=== PATIENT | male | born 1980 | race Caucasian/White ===

== ENCOUNTER 2020-08-12 22:54 | Observation (INO) ==
[2020-08-13] MEDS ORDERED: Acetaminophen 325 MG TABLET PO PRN (01:31)
[2020-08-13] MEDS ORDERED: Ondansetron 4 MG/2 ML VIAL IVP PRN (01:31)
[2020-08-13] MEDS ORDERED: Naloxone 0.4 MG/ML INJ IVP PRN (01:31)
[2020-08-13] MEDS ORDERED: *HR* Dextrose 50 % in Water (Vial) 50 ML VIAL IVP PRN (01:34)
[2020-08-13] MEDS ORDERED: D5% in Water 1,000 ML IVC PRN (01:34)
[2020-08-13] MEDS ORDERED: Dextrose Gel 15 GM/37.5 ML TUBE PO PRN ×2 (01:34)
[2020-08-13] MEDS: Insulin LISPRO 300 UNITS/3 ML VIAL SUBQ SCH ×4 (01:52→17:26)
[2020-08-13 02:34] LABS: Basophils % 0.3 %; Eosinophils % 0.5 %; Hematocrit 37.9 % (37.5-50.1); Hemoglobin 11.4 g/dL (12.9-16.9); Immature Granulocytes % 0.7 % (0-4); Lymphocytes # 1.6 K/mcL (0.6-4.6); Lymphocytes % 28.1 %; Mean Corpuscular HGB Conc 30.1 g/dL (31.6-35.5); Mean Corpuscular Hemoglobin 30.9 pg (28.0-33.3); Mean Corpuscular Volume 102.7 fL (83.0-100.0); Mean Platelet Volume 9.8 fL (9.4-12.4); Monocytes # 0.6 K/mcL (0.0-1.3); Monocytes % 9.7 %; Neutrophils # 3.5 K/mcL (1.6-8.9); Platelet Count 282 K/mcL (140-400); Red Blood Count 3.69 M/mcL (4.19-5.50); Segmented Neutrophils % 60.7 %; White Blood Count 5.8 K/mcL (4.3-11.1)
[2020-08-13 02:35] LABS: Estimated Average Glucose 94 mg/dl; Hemoglobin A1C 4.9 %
[2020-08-13 02:40] LABS: INR 1.1; Prothrombin Time 13.2 Seconds (9.4-12.1)
[2020-08-13 02:55] LABS: Albumin 4.1 g/dL (3.5-5.7); Albumin/Globulin Ratio 1.3 (1.1-2.2); Bilirubin,Total 0.6 mg/dL (0.3-1.0); Calcium 9.6 mg/dL (8.6-10.3); Globulin 3.1 g/dL (2.4-3.5); Magnesium 2.1 mg/dL (1.6-2.6); Phosphorous 4.7 mg/dL (2.7-4.5); Potassium 5.6 mEq/L (3.5-5.1); Total Protein 7.2 g/dL (6.4-8.9)
[2020-08-13 02:58] LABS: Platelet Estimate Normal (Normal)
[2020-08-13] MEDS ORDERED: *HR* LORazepam 2 MG/ML VIAL IVP ONE (03:27)
[2020-08-13] MEDS: MetroNIDAZOLE 500 MG/100 ML 500 MG/100 ML BAG IVPB SCH ×2 (08:29→16:11)
[2020-08-13 09:08] LABS: Hepatitis B Surface Antibody < 3.10 mIU/mL
[2020-08-13 09:20] LABS: Hepatitis B Surface Antigen Nonreactive (Nonreactive)
[2020-08-13 10:09] LABS: Adenovirus F 40/41 PCR Not detected (Not detect); Astrovirus PCR Not detected (Not detect); C.difficile Toxin A/B Gene PCR Not detected (Not detect); Campylobacter by PCR Not detected (Not detect); Cryptosporidium by PCR Not detected (Not detect); Cyclospora cayetanensis PCR Not detected (Not detect); E. coli O157 by PCR Not detected (Not detect); Entamoeba histolytica PCR Not detected (Not detect); Enteroaggregative E.coli(EAEC) Not detected (Not detect); Enteropathogenic E.coli(EPEC) Not detected (Not detect); Enterotoxigenic E.coli (ETEC) Not detected (Not detect); Giardia lamblia PCR Not detected (Not detect); Norovirus GI/GII PCR Not detected (Not detect); Plesiomonas shigelloides PCR Not detected (Not detect); Rotavirus A PCR Not detected (Not detect); Salmonella PCR Not detected (Not detect); Sapovirus PCR Not detected (Not detect); Shig/EnteroinvasiveE coli EIEC Not detected (Not detect); Shigalike tox-prod E coli STEC Not detected (Not detect); Vibrio PCR Not detected (Not detect); Vibrio cholerae PCR Not detected (Not detect); Yersinia enterocolitica PCR Not detected (Not detect)
[2020-08-13] MEDS ORDERED: *HR* Heparin 10,000 UNIT/10 ML VIAL IV PRN ×2 (10:28)
[2020-08-13] MEDS ORDERED: 0.9 % Sodium Chloride 250 ML IVC PRN (10:28)
[2020-08-13] MEDS ORDERED: 0.9 % Sodium Chloride 1,000 ML PRIME SCH (10:30)
[2020-08-13] MEDS ORDERED: 0.9 % Sodium Chloride 1,000 ML ONE (10:47)
[2020-08-13] MEDS ORDERED: ALPRAZolam 0.5 MG TABLET PO PRN (13:43)
[2020-08-13 14:55] VITALS: BP 100/64
[2020-08-13] MEDS ORDERED: Fluticasone Propionate Nasal 50 MCG/SPRAY BOTTLE NS PRN (17:18)
[2020-08-13] MEDS ORDERED: Ergocalciferol (VIT D2) 50,000 UNIT (1.25MG) CAP PO SCH (17:30)
[2020-08-13] MEDS ORDERED: carvediloL 6.25 MG TABLET PO SCH (17:30)
[2020-08-13] MEDS ORDERED: Apixaban 5 MG TABLET PO SCH (17:30)
[2020-08-13] MEDS ORDERED: Insulin LISPRO 300 UNITS/3 ML VIAL SUBQ SCH (21:00)
[2020-08-14] MEDS ORDERED: predniSONE 5 MG TABLET PO SCH (09:00)
[2020-08-14] MEDS ORDERED: EMTRICITABINE PO SCH (09:00)
[2020-08-14] MEDS ORDERED: lisinopriL 20 MG TABLET PO SCH (09:00)
[2020-08-14] MEDS ORDERED: Folic Acid 1 MG TABLET PO SCH (09:00)
[2020-08-14] MEDS ORDERED: TENOFOV ALAFENAM PO SCH (09:00)
== END 2020-08-13 18:32 | disposition left against medical advice (07) ==
LOC: 3ANU
PROVIDERS: ADMIT Internal Medicine; ATTEND Internal Medicine

== ENCOUNTER 2022-01-29 21:53 | Observation (INO) ==
[2022-01-29 23:09] LABS: Basophils # 0.1 K/mcL (0.0-0.2); Basophils % 0.7 %; Eosinophils # 0.7 K/mcL (0.0-0.6); Eosinophils % 9.6 %; Hemoglobin 8.3 g/dL (12.9-16.9); Immature Granulocytes % 0.1 % (0-4); Lymphocytes # 1.8 K/mcL (0.6-4.6); Lymphocytes % 25.6 %; Mean Corpuscular HGB Conc 33.2 g/dL (31.6-35.5); Mean Corpuscular Hemoglobin 33.1 pg (28.0-33.3); Mean Corpuscular Volume 99.6 fL (83.0-100.0); Mean Platelet Volume 10.5 fL (9.4-12.4); Monocytes # 0.5 K/mcL (0.0-1.3); Platelet Count 166 K/mcL (140-400); Red Blood Count 2.51 M/mcL (4.19-5.50); Red Cell Distribution Width 13.8 % (11.5-14.5)
[2022-01-29 23:31] LABS: Calcium 9.9 mg/dL (8.6-10.3); Potassium 7.1 mEq/L (3.5-5.1)
[2022-01-29] MEDS ORDERED: Calcium Gluconate 1gm/50mL 1 GM/50 ML BAG IVPB ONE (23:43)
[2022-01-29] MEDS ORDERED: *HR* Dextrose 50 % in Water (Syg) 50 ML SYRINGE IVP PRN (23:43)
[2022-01-29] MEDS ORDERED: Insulin Human Regular 10 UNIT in 0.9 % Sodium Chloride 10 ML IV ONE (23:43)
[2022-01-29] MEDS ORDERED: Albuterol 2.5 MG/3 ML NEBULIZER IH ONE (23:45)
[2022-01-29 23:47] LABS: Troponin I 0.17 ng/mL (< 0.04)
[2022-01-30] MEDS ORDERED: SODIUM ZIRCONIUM CYCLOSILICATE 5 GM POWD.PACK PO ONE
[2022-01-30 01:31] LABS: Albumin 4.5 g/dL (3.5-5.7); Albumin/Globulin Ratio 1.5 (1.1-2.2); Bilirubin,Direct 0.3 mg/dL (0.0-0.2); Bilirubin,Total 1.3 mg/dL (0.3-1.0); Globulin 3.1 g/dL (2.4-3.5); Total Protein 7.6 g/dL (6.4-8.9)
[2022-01-30] MEDS ORDERED: Naloxone 0.4 MG/ML INJ IVP PRN (02:47)
[2022-01-30] MEDS ORDERED: Ondansetron ODT 4 MG TAB.RAPDIS SL PRN (02:47)
[2022-01-30] MEDS ORDERED: Melatonin 3 MG TABLET PO PRN (02:47)
[2022-01-30 05:15] LABS: Hematocrit 23.2 % (37.5-50.1); Hemoglobin 7.6 g/dL (12.9-16.9); Mean Corpuscular HGB Conc 32.8 g/dL (31.6-35.5); Mean Corpuscular Hemoglobin 32.6 pg (28.0-33.3); Mean Corpuscular Volume 99.6 fL (83.0-100.0); Mean Platelet Volume 10.6 fL (9.4-12.4); Platelet Count 133 K/mcL (140-400); Red Blood Count 2.33 M/mcL (4.19-5.50); Red Cell Distribution Width 13.7 % (11.5-14.5); White Blood Count 5.8 K/mcL (4.3-11.1)
[2022-01-30 05:28] LABS: Albumin 4.1 g/dL (3.5-5.7); Calcium 9.4 mg/dL (8.6-10.3); Magnesium 2.6 mg/dL (1.6-2.6); Phosphorous 5.4 mg/dL (2.7-4.5); Potassium 5.8 mEq/L (3.5-5.1)
[2022-01-30 06:44] LABS: Folate > 22.3 ng/mL (3.0-16.0); Vitamin B12 256 pg/mL (250-1100)
[2022-01-30] MEDS ORDERED: SODIUM ZIRCONIUM CYCLOSILICATE 5 GM POWD.PACK PO SCH (08:00)
[2022-01-30] MEDS ORDERED: Metoprolol XL (24 HR) Succ 25 MG TAB.ER.24H PO SCH (09:00)
[2022-01-30] MEDS ORDERED: *HR* Heparin 10,000 UNIT/10 ML VIAL IV PRN (10:05)
[2022-01-30] MEDS ORDERED: 0.9 % Sodium Chloride 250 ML IVC PRN (10:05)
[2022-01-30] MEDS ORDERED: 0.9 % Sodium Chloride 2,000 ML PRIME SCH (10:15)
[2022-01-30 11:22] LABS: Hepatitis B Surface Antibody < 3.10 mIU/mL
[2022-01-30 11:33] LABS: Hepatitis B Surface Antigen Nonreactive (Nonreactive)
[2022-01-30 11:41] VITALS: PULSE 71; O2SAT 98
[2022-01-30 14:32] VITALS: BP 145/79; TEMP 98
== END 2022-01-30 15:42 | disposition home or self-care (01) ==
LOC: 2ANU 21:53 → EMEROOARM 21:53 → SUATTDRO 01-30 02:50 → 2ANU 01-30 03:35
PROVIDERS: ADMIT Internal Medicine; ATTEND Family Medicine